=== PATIENT | male | born 1965 | race Caucasian/White ===

== ENCOUNTER → 2016-11-18 | Outpatient (CLI) | payer BC ==
[~2016-11-18] MED LIST: DICL-201 PO; FLX10 PO; LRT5 PO
[2016-11-18 13:26] LABS: BASO % 0.5 %; BASO ABS # 0.03 K/uL (0-0.2); COMPLETE YES; EOS % 0.8 %; HEMATOCRIT 44.3 % (42-52); IG% 0.2 %; LYMPH % 28.5 %; LYMPH ABS # 1.77 K/uL (1.2-3.4); MEAN CELL VOLUME 87.5 fL (80-100); MEAN CORPUSCULAR HEMOGLOBIN 31.4 pg (25-34); MEAN CORPUSCULAR HGB CONC 35.9 g/dl (32-36); MEAN PLATELET VOLUME 10.8 fL (7.4-10.4); MONO % 11.3 %; NEUT % 58.7 %; PLATELET COUNT 275 K/uL (130-400); RED BLOOD COUNT 5.06 M/uL (4.7-6.1)
[2016-11-18 13:48] LABS: ALT/SGPT 25 U/L (12-78); AST/SGOT 10 U/L (15-37); BLOOD UREA NITROGEN 25 mg/dl (7-18); BUN/CREATININE RATIO 26.3 (10-20); CALCIUM 8.8 mg/dl (8.5-10.1); CARBON DIOXIDE 28 mmol/L (21-32); CHLORIDE 107 mmol/L (98-107); CHOLESTEROL 149 mg/dl (0-200); CREATININE 0.95 mg/dl (0.60-1.40); GLUCOSE 93 mg/dl (70-99); POTASSIUM 4.1 mmol/L (3.5-5.1); SODIUM 140 mmol/L (136-145); TRIGLYCERIDES 75 mg/dl (0-150); VERY LOW DENSITY LIPOPROT CALC 15 mg/dl
[2016-11-18 13:59] LABS: ALB/GLOB RATIO 1.2 (0.9-2); ALKALINE PHOSPHATASE 113 U/L (45-117); CHOLESTEROL/HDL RATIO 3.8; HDL CHOLESTEROL 39 mg/dl; THYROID STIMULATING HORMONE 0.822 uIu/ml (0.300-4.500)
== END | disposition home or self-care (01) ==
LOC: C.LABSPEC 10:30
PROVIDERS: ATTEND Internal Medicine
DX: R53.83 Other fatigue (principal); E78.5 Hyperlipidemia, unspecified

== ENCOUNTER 2020-01-12 13:06 | Observation (INO) ==
--- NOTE | 2019-12-22 10:38 | PAT Medication Instructions ---
Medication Instructions Date of Service December 22, 2019 Home Medications dextroamphetamine-amphetamine [Adderall] 20 mg PO DAILY PRN lisdexamfetamine [Vyvanse] 70 mg PO DAILY PRN tadalafil [Cialis] 20 mg PO DAILY PRN DO NOT take the morning of surgery dextroamphetamine-amphetamine [Adderall] 20 mg PO DAILY PRN lisdexamfetamine [Vyvanse] 70 mg PO DAILY PRN tadalafil [Cialis] 20 mg PO DAILY PRN Other Notes If you have any questions please call us at [phone] or [phone] or [phone] or [phone]
--- NOTE | 2019-12-23 14:45 | Anesthesiology Consultation ---
Date of Service December 23, 2019 Assessment & Plan (1) Encounter for pre-operative examination: - Per assessment on 12/12: Travel screen- Lives in [facility]. Travel to [facility]. No known COVID-19 positive contacts or current COVID-19 rela arabella symptoms. Surgeon arranging preop COVID testing. Awaiting results. - Anxious: Patient anxious re: upcoming surgery/anesthesia. Patient requesting general anesthesia if possible. SAB vs. GA discussed with patient. Advised patient to discuss further with anesthesiologist NIMESH DAVIS. Chart Review Chart Review: Acceptable Risk for Surgery (pending surgeon-ordered PCP clearance) and Patient seen in Pre Admission Testing Teaching & Discussion Pre-Anesthesia Teaching/Discussion Notes: Instructed NPO after midnight before surgery,except medications with 15 cc of water. Medication instructions provided according to the PAT guidelines. History Surgery Operation Date: 01/12/20 08:50 Proposed Procedures p Right Total Hip Arthroplasty - Greg Nichols MD Height/Weight Height: 6 ft Weight: 113.2 kg Allergies Allergy/AdvReac Type Severity Reaction Status Date / Time No Known Allergies Allergy Unknown Verified 12/13/19 14:41 Medications Home Medications Medication Instructions Recorded Confirmed Last Taken dextroamphetamine-amphetamine 20 mg PO DAILY PRN 12/13/19 12/13/19 Unknown [Adderall] lisdexamfetamine [Vyvanse] 70 mg PO DAILY PRN 12/13/19 12/13/19 Unknown tadalafil [Cialis] 20 mg PO DAILY PRN 12/13/19 12/13/19 Unknown Past Medical History Medical History ADHD occasional meds Hypertension per records, patient denies Obesity Sleep apnea borderline, could not tolerate machine Exercise / Class Metabolic Activity II 4-5 Yardwork/Stairs/Walk up hill Past Surgical History Surgical History History of arthroscopy of left shoulder Hx of colonoscopy Past Anesthesia History No Hx of Anesthesia Complications and No Family Hx of Anesthesia Complications History of PONV No Hx of PONV and Hx of Motion Sickness Social History Smoking Status: Never smoker Do You Dip or Chew Tobacco: No Hx Alcohol Use: Yes alcohol intake frequency: holidays/special occasions only Hx Substance Use: No substance use type: does not use Review of Systems Patient denies chest pain, shortness of breath, dyspnea on exertion, fever, chills, cough, wheezing, palpitations. Physical Exam Vital Signs VITALS BP 163/76 (patient anxious regarding upcoming surgery) P 89 TEMP 98.8 SP02 94%RA RESP 16 PHYSICAL Full neck and c-spine range of motion. Full TMJ range of motion. TMD 3 finger breaths Mallampati Score 3 Dentition: intact Lungs: clear throughout to auscultation Cardiac: regular rate and rhythm, no murmurs noted Spine: normal Carotid arteries: negative bruit Extremities: no edema Testing Laboratory Results 12/23/19 15:42 12/23/19 15: PT 10.5 Seconds (9.0-12.0) 12/23/19: INR 1.0 (0.9-1.1) 12/23/19 15: APTT 27.9 Seconds (21.0-31.0) 12/23/19 15: Urine Color Yellow 12/23/19: Urine Appearance Clear (Clear) 12/23/19 15: Urine pH 6.0 (4.5-7.5) 12/23/19 15: Ur Specific Browning 1.023 (1.000-1.030) 12/23/19 15: Urine Protein Negative (Negative) 12/23/19 15: Urine Glucose (UA) Negative (Negative) 12/23/19 15:42 Urine Ketones Negative (Negative) 12/23/19 15: Urine Nitrite Negative (Negative) 12/23/19 15: Ur Leukocyte Esterase Negative (Negative) 12/23/19: Blood Type O Negative 12/23/19 15: Antibody Screen NEGATIVE 12/23/19 15:42 Electrocardiogram Date: 12/30/19 Findings: + NSR @ (88) Chest X-Ray Date: 12/23/19 FINDINGS: Azygos lobe and fissure. Cardiomediastinal and hilar silhouettes are within normal limits. No pneumothorax, pleural effusion, airspace consolidation or overt pulmonary edema. Bones of the chest appear grossly intact. IMPRESSION: No acute process.
--- NOTE | 2019-12-23 16:05 | XRay Report ---
XR chest Pre-admission PA/Lat HISTORY: 54 years-old Male pat preoperative exam. No acute chest complaints COMPARISON: Left shoulder radiographs 09/15/2013 TECHNIQUE: PA and lateral views of the chest FINDINGS: Azygos lobe and fissure. Cardiomediastinal and hilar silhouettes are within normal limits. No pneumot horax, pleural effusion, airspace consolidation or overt pulmonary edema. Bones of the chest appear g rossly intact. IMPRESSION: No acute process. ACT 112: Negative or not required by law. The above report was generated using voice recognition software. It may contain grammatical, syntax o r spelling errors. Electronically signed by: Flaco Krishnan M.D. 12/23/2019 4:03 PM
[2019-12-23 16:27] LABS: Basophils # (auto) 0.02 K/uL (0-0.2); Basophils % (auto) 0.3 %; Eosinophils # (auto) 0.08 K/uL (0-0.5); Eosinophils % (auto) 1.1 %; Hematocrit (blood only) 42.7 % (42-52); Hemoglobin 15.3 g/dL (14.0-18.0); Immature Granulocytes # (auto) 0.01 K/uL (0.00-0.02); Immature Granulocytes % (auto) 0.1 %; Lymphocytes # (auto) 1.97 K/uL (1.2-3.4); Lymphocytes % (auto) 27.2 %; Mean Corpuscular Hemoglobin 31.4 pg (25-34); Mean Corpuscular Hgb Conc 35.8 g/dL (32-36); Mean Corpuscular Volume 87.7 fL (80-100); Mean Platelet Volume 10.3 fL (7.4-10.4); Neutrophils # (auto) 4.37 K/uL (1.4-6.5); Neutrophils % (auto) 60.3 %; Platelet Count 293 K/uL (130-400); RDW Coefficient of Variation 12.2 % (11.5-14.5); Red Blood Count 4.87 M/uL (4.7-6.1); White Blood Count 7.25 K/uL (4.8-10.8)
[2019-12-23 16:28] LABS: Appearance Urine Clear (Clear); Bilirubin Urine Negative (Negative); Blood Urine Negative (Negative); Color Urine Yellow; Glucose Urine UA Negative (Negative); Ketones Urine Negative (Negative); Leukocyte Esterase Urine Negative (Negative); Nitrite Urine Negative (Negative); Protein Urine Negative (Negative); Specific Gravity Urine 1.023 (1.000-1.030); Urobilinogen Urine Negative (Negative)
[2019-12-23 16:35] LABS: BUN Creatinine Ratio 17.2 (10-20); Calcium 9.4 mg/dl (8.5-10.1); Est GFR (African American) 87.4; Est GFR (Non-African American) 75.4; Potassium 4.5 mmol/L (3.5-5.1)
[2019-12-23 16:39] LABS: Partial Thromboplastin Time 27.9 Seconds (21.0-31.0); Prothrombin Time 10.5 Seconds (9.0-12.0)
--- NOTE | 2019-12-24 06:12 | Electrocardiogram Report ---
Test Reason : Blood Pressure : / mmHG Vent. Rate : 088 BPM Atrial Rate : 088 BPM P-R Int : 166 ms QRS Dur : 086 ms QT Int : 358 ms P-R-T Axes : 060 067 012 degrees QTc Int : 433 ms Normal sinus rhythm Normal ECG When compared with ECG of 17-DEC-2013 13:04, No significant change was found Confirmed by Tonny Palacios ([id number]) on 12/24/2019 6:12:03 AM Referred By: Greg Nichols Confirmed By:Tonny Palacios
--- NOTE | 2020-01-04 16:34 | History & Physical Report ---
Date of Service January 04, 2020 Assessment & Plan (1) Degenerative joint disease of right hip: Postoperative prescriptions for Percocet and Coumadin will be provided at discharge from the hospital. Anticipate discharge to home with home health services or outpatient services. Preoperative lab work, EKG, and chest x-ray have been ordered. Medical clearance has been requested from his PCP, Dr. Paul Narvaez. A prescription was provided for a rolling walker and a hospital bed. He will obtain a raised toilet seat. The patient is aware of the COVID-19 risks associated with surgery. He is currently asymptomatic of any COVID-19 symptoms. He will obtain nasal swab testing the week before surgery. PDMP was checked and there are no concerning findings. History of Present Illness Chief Complaint: Right hip pain Primary Care Provider: Warren Kirkpatrick MD This 54-year-old white male presents today for right hip pain for the last 2 y ears. He is scheduled to undergo a right hip total hip arthroplasty on 01/12/2020. The pain has become significantly worse over the last year. He notes difficulty with daily activities as well as recreational activities. He states he can no longer golf comfortably. He notes he is putting on weight because he is not exercising. No left hip pain. Pain in the right hip is primarily in the groin. He does note loss of motion. No numbness or tingling. Pain is worse with weightbearing. Occasional difficulty with sleep due to his hip pain. He has had numerous evaluations and now elects to proceed with surgical intervention. Preoperative imaging has been obtained. Allergies Allergy/AdvReac Type Severity Reaction Status Date / Time No Known Allergies Allergy Unknown Verified 12/13/19 14:41 Home Medications Home Medications Medication Instructions Recorded Confirmed Type dextroamphetamine-amphetamine 20 mg PO DAILY PRN 12/13/19 12/13/19 History [Adderall] lisdexamfetamine [Vyvanse] 70 mg PO DAILY PRN 12/13/19 12/13/19 History tadalafil [Cialis] 20 mg PO DAILY PRN 12/13/19 12/13/19 History Past Med/Surg History Medical History ADHD occasional meds Hypertension per records, patient denies Obesity Sleep apnea borderline, could not tolerate machine Surgical History History of arthroscopy of left shoulder Hx of colonoscopy Social History Smoking Status: Never smoker Second Hand Exposure: No; Hx Alcohol Use: Yes Hx Substance Use: No Preferred Language: Maltese Communication Ability: Effective Visual Impairment: No Limitations Hearing Ability: Normal Pitch Worker Required: No Beliefs That Will Affect Care: None Current Living Situation: Alone current occupational status: employed current occupation: [employer] Feels Safe at Home: Yes Assistive Devices: Glasses Review of Systems Review of Systems: All systems reviewed & are unremarkable except as noted in HPI & below A total of 10 systems were reviewed. Physical Exam Physical Exam: Vitals: Height 184 cm, weight 110 kilograms, BMI 32.5, temperature 36.6 oral, BP 162/84, pulse 106, O2 sat 97% on room air. General: Well-developed, well-nourished middle-aged white male in no acute distress. Sitting in a chair. Alert and oriented. Skin: Warm and dry with good turgor. No rashes or lesions. No ecchymosis or erythema. HEENT: Normocephalic, atraumatic. Eyes: PERRLA, EOMI. Nares and oropharynx exams deferred due to COVID precautions. Heart: RRR, slightly tachycardic. No MGR. Lungs: Clear to auscultation bilaterally, no crackles, rhonchi or wheezing, good air movement. Abdomen: Moderately obese, bowel sounds present x4, soft, nontender. No organomegaly. No masses. Musculoskeletal: Right hip evaluation reveals no obvious asymmetry or deformity. He has focal discomfort with palpation over the anterior flexion c rease. He has good hip flexion greater than 100 degrees. There is very limited internal and external rotation secondary to pain. Internal rotation of only about 3 or 4 degrees, external rotation of 20 degrees. Strength is 5/5 for resisted hip flexion, abduction, and adduction. Ambulates with a slightly antalgic gait. Right leg is slightly short, but is causing leg length inequality. Neurologic: Gross sensation is intact across both lower extremities by soft touch. Peripheral pulses are 2+. Results & Data Results & Data ([facility]) Diagnostic Findings Radiographic imaging previously shows dysplastic hip anatomy with a CAM lesion. He has significant joint space narrowing, periarticular osteophytes, and subchondral sclerosis. He also appears to have a loose body in the capsule.
--- NOTE | 2020-01-12 10:33 | History & Physical Bridge Note ---
Date of Service January 12, 2020 History & Physical Bridge Note I have examined the patient, reviewed the History & Physical and in the interval since the performance of the History & Physical I have noted the following changes of clinical significance: consent obtained/site verified/covid screen negative.no changes noted
--- NOTE | 2020-01-12 12:45 | Post Operative Brief Note ---
Immediate Post Op Note v1 Date of Surgery January 12, 2020 Pre & Post Diagnosis Operation Date: 01/12/20 10:40 Pre-Op Diagnosis: Degenerative joint disease of right hip Post-Op Diagnosis: Degenerative joint disease of right hip I identified the patient and participated in the time-out.: Yes Procedure Operation Date: 01/12/20 10:40 Actual Procedures p Right Total Hip Arthroplasty - uncemented(Right) - Greg Nichols MD Surgeon Greg Nichols MD Paper Goods Machine Set Up Operator radha/marcella Estimated Blood Loss 225 Findings Consistent with Post-Op Diagnosis
--- NOTE | 2020-01-12 12:58 | Operative Report ---
Post Operative Report Pre & Post Diagnosis Operation Date: 01/12/20 10:40 Pre-Op Diagnosis: Degenerative joint disease of right hip Post-Op Diagnosis: Degenerative joint disease of right hip I identified the patient and participated in the time-out.: Yes Procedure Operation Date: 01/12/20 10:40 Actual Procedures p Right Total Hip Arthroplasty - uncemented(Right) - Greg Nichols MD Surgeon CHEYANNE Nichols MD Spinner Concrete Pipe radha/marcella CONSTANTINO Estimated Blood Loss 225 Findings Consistent with Post-Op Diagnosis Specimens see operative report Drains none Complications none Disposition Accompanied Patient To Recovery: Yes Disposition: Recovery Room Indications This 54-year-old white male presented to the office with complaints of severe right hip pain. He had tried conservative care measures without improvement. He elected to proceed with surgical intervention after being educated about potential risks and outcomes. Preoperative imaging was obtained. Description of Procedure Patient was taken to the operating room where he was given general anesthesia. He was prepped and draped in the usual sterile fashion. Please see Dr. Nichols's operative report for specifics of the procedure. I was present for the entire case from initial patient positioning through final wound closure. Assistance was provided in tissue retraction, hemostasis, trial implant placement, final implant placement, and final wound closure. Patient was taken to the recovery room in satisfactory condition. I attest to the content of the Intraoperative Record and any orders documented therein. Any exceptions are noted below.
[2020-01-12] MEDS: fentaNYL citrate 100 MCG/2 ML VIAL IV PRN ×2 (13:05→13:18)
[~2020-01-12 13:06] MED LIST changes: +ACETAMINOPHEN 325 MG TAB ONE; +ACETAMINOPHEN 325 MG TAB PO STA; +ATROPINE SULFATE 0.1 MG/ML 10ML SYR IV PRN; +BUPIVACAINE 0.5 % 5 MG/1 ML PF 10ML VIAL ONE; +DEXAMETHASONE SOD INJ 4 MG/ML VIAL ONE; -DICL-201 PO; -FLX10 PO; +GELATIN SPONGE SZ 100 ONE; +GLYCOPYRROLATE 0.2 MG/ML VIAL ONE; +HYDROmorphone INJ 2 MG/ML SYR/VIAL ONE; +KETAMINE 50 MG/5 ML SYRINGE ONE; +LARYING-O-JET KIT (LTA) ONE; +LR 500ML BOLUS, THEN 15ML/HR IV SCH; +LR 60ML/HR IV SCH; -LRT5 PO; +MIDAZOLAM HCL 1 MG/ML 2ML VIAL ONE; +NEOSTIGMINE METHYLSULFATE 5 MG/5 ML SYR ONE; +ONDANSETRON INJ 2 MG/ML 2 ML VIAL IV PRN; +ONDANSETRON INJ 2 MG/ML 2 ML VIAL ONE; +ORTHO JOINT ANESTHETIC ONE; +PROMETHAZINE HCL 12.5 MG in SODIUM CHLORIDE 0.9% 50 ML IV PRN; +PROPOFOL IV EMULSION 10 MG/ML 20 ML VIAL IV ONE; +ROCURONIUM BROMIDE 10 MG/ML 5 ML VIAL IV ONE; +ROPIVACAINE 0.5% HCL/PF 150 MG, BUPIVACAINE 0.5% MPF 30 ML, EPINEPHrine 0.15 MG, Ketoro... INFIL SCH; +THROMBIN FOR SOLN 20000 UNIT KIT ONE; +TRANEXAMIC ACID 1,000 MG **IV Pre-op IV SCH; +ceFAZolin 2000MG 2,000 MG/15 ML SYR IV SCH; +ePHEDrine sulfate 50 MG/ML AMP IV PRN; +fentaNYL citrate 100 MCG/2 ML VIAL ONE
--- NOTE | 2020-01-12 13:18 | Operative Report (OR) ---
DATE OF OPERATION: 01/12/2020 SURGEON: Greg Nichols MD. CORPORATE BOND TRADER: Xena. SECOND CORPORATE BOND TRADER: Darwin Rodríguez PA-C. 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 OPERATION PERFORMED: Noncemented right total hip replacement. SUMMARY OF IMPLANTS: Size 50 acetabular shell sector cup, apex screw 6.5 x 25, hole eliminator, 32 x 50 neutral +4 liner, 1 high-offset stem, 32+5 head. ESTIMATED BLOOD LOSS: 225 mL. CRYSTALLOID: Per anesthesia. PATHOLOGY: Pending on bone. DVT prophylaxis per protocol. PERIOPERATIVE SITUATION: Medically cleared male with intractable hip pain. X-ray and physical exam are consistent with severe disease, wants to proceed with surgical treatment. He understands all the risks and consequences. DESCRIPTION OF PROCEDURE: The patient was appropriately identified, site verified, consent verified. Antibiotics confirmed as being given. Right lower extremity was prepped and draped in usual routine fashion with the patient in the left lateral decubitus position. A posterior approach to the hip was made. Sharp dissection carried to skin and blunt dissection down to fascia. IT band was then opened as well as gluteus shital fascia. Deep retractors placed. Care taken to protect the sciatic nerve. Short external rotators were released. Capsule released. The femoral head was then dislocated, a large loose body popped out. Several other loose bodies were in there once the femoral head was resected. There was significant labral disease. This was all excised. Serial reaming was carried up to a size 50 and a 50 cup impacted into appropriate inclination and anteversion. Trial liner seated. Femur was then prepared with dye box operator, lateralizing rasp, canal finder and serial broaching up to a size 1. Size 1 lateralized with +5 head was very good. It was stable in all planes. The hip was then dislocated. The wound was irrigated with Betadine, Pulsavac, thrombin and Gelfoam placed medially and then the permanent liner seated, permanent head and stem seated. The hip reduced. It was stable in all planes. Leg lengths were excellent. Gelfoam was then removed. More thrombin placed and everything looked good. The capsule was then closed with #2 Vicryl, the piriformis same thing with the short external rotators, the fascia with #2 Vicryl, subcutaneous layer with 2-0 Vicryl and stainless steel clips for skin. Appropriate Orthomix was injected in the superficial wound only. Wound was then appropriately dressed. The patient was transferred to recovery room in satisfactory condition having tolerated the procedure well. Pathology pending on bone. DVT prophylaxis per protocol. I attest to the content of the Intraoperative Record and any orders documented therein. Any exception s are noted below.
--- NOTE | 2020-01-12 13:38 | Progress Notes ---
DATE: 01/12/2020 SUBJECTIVE: Postop check status post right total hip replacement. The patient is doing well, has a reasonable amount of pain. He did not have a spinal. He has a neurovascularly intact femoral sciatic nerve. Wound dressing clean, dry and intact. Postop x-rays look excellent. ASSESSMENT: Status post right total hip replacement. Continue pain management appropriately, do not overmedicate. Can be weightbearing to tolerance with walker. Will follow up with me in the a.m. Discharge tomorrow. If he does well overnight, we will discharge tomorrow.
--- NOTE | 2020-01-12 13:38 | Anesthesiology Progress Note ---
Date of Service January 12, 2020 Anesthesia Post Procedure Vital Signs Vital Signs: Temp Pulse Pulse Resp BP BP Pulse Ox 01/12/20 13:35 83 13 174/93 H 97 01/12/20 13:25 82 15 155/97 H 100 01/12/20 13:15 92 H 14 150/97 H 99 01/12/20 13:05 78 12 129/96 100 01/12/20 12:57 36.7 C 81 19 164/97 H 98 01/12/20 09:34 36.5 C 74 18 144/94 H 96 01/12/20 09:14 36.6 C 76 18 161/94 H 98 Pain Intensity Head: Pain Intensity: 7 Right Hip: Pain Intensity: 4 Transfer of Care Handoff Completed per policy Notes Mental Status: alert / awake / arousable and participated in evaluation Patient Amnestic to Procedure: Yes Nausea / Vomiting: adequately controlled Pain: adequately controlled Airway Patency, RR, SpO2: stable & adequate BP & HR: stable & adequate Hydration State: stable & adequate Anesthetic Complications: no major complications apparent and Pt Satisfied with anesthetic care
[2020-01-12] MEDS: HYDROmorphone INJ 2 MG/ML SYR/VIAL IV PRN ×2 (13:42→13:47)
--- NOTE | 2020-01-12 13:44 | XRay Report ---
XR pelvis 1-2V routine HISTORY: 54 years-old Male S/P R MILE AP pelvis view centerd on the hips only right hip total joint a rthroplasty COMPARISON: Pelvis radiograph 12/23/2019 TECHNIQUE: AP view of the pelvis FINDINGS: Right hip total joint arthroplasty. Lateral skin citlalli are noted along with expected postsurgical s oft tissue swelling and deep tissue air. No acute fracture or unexpected opaque foreign body. Moderat e left hip osteoarthritis. Numerous radiodensity projecting of the midline pelvis which may reflect f ecal debris. IMPRESSION: Right hip total joint arthroplasty with expected postoperative changes. ACT 112: Negative or not required by law. The above report was generated using voice recognition software. It may contain grammatical, syntax o r spelling errors. Electronically signed by: Flaco Krishnan M.D. 01/12/2020 1:43 PM
--- NOTE | 2020-01-12 13:52 | Discharge Summary (DS) ---
CHIEF COMPLAINT: Right hip pain. HISTORY OF PRESENT ILLNESS: Underwent elective right total hip replacement. He is doing well postop. If he does well overnight, he will be discharged tomorrow. Denies any nausea, vomiting, chest pain, shortness of breath, fever or chills. Femoral sciatic nerve is functioning well. Postop x-rays look excellent. PAST MEDICAL HISTORY: Remarkable for ADHD, hypertension, obesity, sleep apnea, shoulder arthroscopy, colonoscopy. SOCIAL HISTORY: Reveals that he does not smoke. Uses alcohol. Lives alone. He is employed at [employer]. REVIEW OF SYSTEMS: Reveals no problems with chest pain, shortness of breath, fever, chills, nausea, vomiting or headache. ASSESSMENT: Doing well status post right total hip replacement. Continue postoperative care pathway and discharge to home tomorrow if he does well.
[2020-01-12] MEDS ORDERED: bisacodyL 10 MG SUPP PR PRN (14:26)
[2020-01-12] MEDS ORDERED: ALUMINUM/MAGNESIUM SUSP 30 ML UDC PO PRN (14:26)
[2020-01-12] MEDS ORDERED: TAMSULOSIN HCL 0.4 MG CAP PO PRN (14:26)
[2020-01-12] MEDS ORDERED: NALOXONE HCL 0.4 MG/1 ML VIAL/CARP IV PRN (14:26)
[2020-01-12] MEDS ORDERED: HYDROmorphone INJ 0.5 MG/0.5 ML SYR IV PRN (14:26)
[2020-01-12] MEDS ORDERED: ONDANSETRON INJ 2 MG/ML 2 ML VIAL IV PRN (14:26)
[2020-01-12] MEDS ORDERED: MAGNESIUM HYDROXIDE SUSP 30 ML UDC PO PRN (14:26)
[2020-01-12] MEDS ORDERED: oxyCODONE HCL IR 5 MG TAB (IMMEDIATE RELEASE) PO PRN (14:26)
[2020-01-12] MEDS ORDERED: diphenhydrAMINE 50 MG/ML VIAL IV PRN (14:26)
[2020-01-12] MEDS ORDERED: METOCLOPRAMIDE HCL INJ 5 MG/ML 2 ML VIAL IV PRN (14:26)
[2020-01-12] MEDS ORDERED: AMPHETAMINE ASP/SULF/DEXTRAMPH 20 MG TAB PO PRN (14:45)
[2020-01-12] MEDS ORDERED: SODIUM CHLORIDE 0.9% 1000ML 1,000 ML IV SCH (14:45)
[2020-01-12] MEDS: ORTHO WARFARIN NOMOGRAM SCH (15:09)
[2020-01-12] MEDS: ACETAMINOPHEN 500 MG TAB PO SCH ×2 (15:52→21:04)
[2020-01-12] MEDS ORDERED: WARFARIN SOD 5 MG TAB PO SCH (16:00)
[2020-01-12] MEDS: KETOROLAC 30 MG/ML VIAL IV SCH ×2 (17:09→21:04)
[2020-01-12] MEDS: ASCORBIC ACID 500 MG TAB PO SCH (17:12)
[2020-01-12] MEDS: FERROUS GLUCONATE 324 MG TAB PO SCH (17:12)
[2020-01-12] MEDS: ceFAZolin 2000MG 2,000 MG/15 ML SYR IV SCH (18:30)
[2020-01-12] MEDS ORDERED: TRANEXAMIC ACID / 0.7% NACL 1,000 MG/100 ML BAG IV SCH (19:00)
[2020-01-12] MEDS ORDERED: SENNA 8.6 MG TAB PO SCH (21:00)
[2020-01-12] MEDS: DOCUSATE SODIUM 100 MG CAP PO SCH (21:04)
[2020-01-13] MEDS: ceFAZolin 2000MG 2,000 MG/15 ML SYR IV SCH (03:50)
[2020-01-13] MEDS: KETOROLAC 30 MG/ML VIAL IV SCH ×2 (03:51→08:35)
[2020-01-13] MEDS: ACETAMINOPHEN 500 MG TAB PO SCH ×2 (05:17→13:25)
[2020-01-13 06:10] LABS: Basophils # (auto) 0.01 K/uL (0-0.2); Basophils % (auto) 0.1 %; Eosinophils # (auto) 0.02 K/uL (0-0.5); Eosinophils % (auto) 0.1 %; Hematocrit (blood only) 37.3 % (42-52); Hemoglobin 12.8 g/dL (14.0-18.0); Immature Granulocytes # (auto) 0.04 K/uL (0.00-0.02); Immature Granulocytes % (auto) 0.3 %; Lymphocytes % (auto) 18.8 %; Mean Corpuscular Hgb Conc 34.3 g/dL (32-36); Mean Corpuscular Volume 90.3 fL (80-100); Mean Platelet Volume 10.7 fL (7.4-10.4); Monocytes # (auto) 1.73 K/uL (0.11-0.59); Monocytes % (auto) 11.6 %; Neutrophils # (auto) 10.33 K/uL (1.4-6.5); Neutrophils % (auto) 69.1 %; Platelet Count 325 K/uL (130-400); RDW Coefficient of Variation 12.5 % (11.5-14.5); Red Blood Count 4.13 M/uL (4.7-6.1); White Blood Count 14.93 K/uL (4.8-10.8)
[2020-01-13 06:15] LABS: INR 1.1 (0.9-1.1); Prothrombin Time 11.1 Seconds (9.0-12.0)
[2020-01-13 06:46] LABS: BUN Creatinine Ratio 20.4 (10-20); Calcium 8.4 mg/dl (8.5-10.1); Creatinine Clr Calc Pharmacy 98.6 ml/min; Est GFR (African American) 87.4; Est GFR (Non-African American) 75.4; Potassium 4.3 mmol/L (3.5-5.1)
[2020-01-13] MEDS ORDERED: dexAMETHasone 10 MG in SYRINGE 0 ML IV SCH (08:00)
--- NOTE | 2020-01-13 08:25 | Progress Notes ---
DATE: 01/13/2020 SUBJECTIVE Postop day #1 status post right total hip replacement. The patient is doing well, has no major issues. Denies any chest pain, shortness of breath, fever, chills, nausea, vomiting or headache. OBJECTIVE: VITAL SIGNS: Stable. He is afebrile. LABORATORY WORK: Hematocrit stable at 37.3. INR is 1.1. Chemistry panel pending. The femoral sciatic nerve normal. Calves nontender. Hip located. Wound dressing clean, dry and intact. ASSESSMENT: Doing well. Discharge to home today after PT, OT. Discharge on Coumadin.
[2020-01-13] MEDS: ASCORBIC ACID 500 MG TAB PO SCH (08:34)
[2020-01-13] MEDS: FERROUS GLUCONATE 324 MG TAB PO SCH (08:34)
[2020-01-13] MEDS: DOCUSATE SODIUM 100 MG CAP PO SCH (08:34)
[2020-01-13] MEDS ORDERED: WARFARIN SOD 5 MG TAB PO SCH (09:00)
[2020-01-13] MEDS ORDERED: MULTIVITAMIN TAB PO SCH (09:00)
--- NOTE | 2020-01-13 09:01 | Anesthesiology Progress Note ---
Date of Service January 13, 2020 Anesthesia Post Procedure Vital Signs Vital Signs: Temp Pulse Pulse Resp BP BP Pulse Ox 01/13/20 07:42 36.4 C L 89 16 136/83 98 01/13/20 03:43 36.4 C L 87 16 142/82 H 100 01/12/20 23:48 36.6 C 87 16 137/80 98 01/12/20 20:53 36.7 C 98 H 18 137/82 100 01/12/20 17:15 36.5 C 90 18 149/87 H 98 01/12/20 16:15 36.7 C 74 18 130/86 100 01/12/20 15:30 36.6 C 81 18 145/93 H 97 01/12/20 14:45 78 16 124/77 94 01/12/20 14:15 36.5 C 82 16 170/83 H 92 01/12/20 14:05 67 13 161/91 H 97 01/12/20 13:55 36.7 C 71 12 157/87 H 96 01/12/20 13:45 90 14 157/91 H 98 01/12/20 13:35 83 13 174/93 H 97 01/12/20 13:25 82 15 155/97 H 100 01/12/20 13:15 92 H 14 150/97 H 99 01/12/20 13:05 78 12 129/96 100 01/12/20 12:57 36.7 C 81 19 164/97 H 98 01/12/20 09:34 36.5 C 74 18 144/94 H 96 01/12/20 09:14 36.6 C 76 18 161/94 H 98 Pain Intensity Head: Pain Intensity: 7 Right Hip: Pain Intensity: 3 Notes Mental Status: alert / awake / arousable and participated in evaluation Nausea / Vomiting: adequately controlled Pain: adequately controlled Airway Patency, RR, SpO2: stable & adequate BP & HR: stable & adequate Hydration State: stable & adequate
[2020-01-13] MEDS: ORTHO WARFARIN NOMOGRAM SCH (09:02)
[2020-01-13 11:19] VITALS: BP 137/89; PULSE 94; TEMP 98.4; O2SAT 96
== END 2020-01-13 14:31 | disposition home health service (06) ==
LOC: ASU 14:24 → 3E 14:24